=== PATIENT | male | born 1980 ===

== ENCOUNTER 2017-09-23 03:09 | Emergency (ER) | payer SELFPAY ==
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
[2017-09-23 03:34] VITALS: RESP 16
[2017-09-23 07:16] VITALS: BP 117/68; PULSE 96; TEMP 98.3; O2SAT 98
== END 2017-09-23 05:30 | disposition home or self-care (01) ==
LOC: C.ER 03:09
DX: F10.129 Alcohol abuse with intoxication, unspecified (principal); S00.81XA Abrasion of other part of head, initial encounter; S60.222A Contusion of left hand, initial encounter; Y04.0XXA Assault by unarmed brawl or fight, initial encounter